=== PATIENT | female | born 1945 | race Caucasian/White ===

== ENCOUNTER 2017-02-17 05:33 | Inpatient (IN) | payer BC, MEDICARE ==
[2017-02-17] MEDS ORDERED: NS 0.9% 1000 ML* 2,000 ML IV ONE (05:53)
[2017-02-17] MEDS ORDERED: Ondansetron INJ* 2 MG/ML VIAL IV ONE ×2 (05:53→10:02)
[2017-02-17] MEDS ORDERED: Morphine INJ* 4 MG/ML 1 ML SYRINGE IV ONE (05:53)
[2017-02-17 06:06] LABS: Hematocrit 53 % (35-47); Mean Corpuscular HGB Conc 34 g/dl (31-36); Mean Corpuscular Hemoglobin 32 pg (27-31); Mean Corpuscular Volume 94 fL (80-97); Mean Platelet Volume 9 um3 (7.4-10.4); Red Cell Distribution Width 13 % (10.5-15)
[2017-02-17 06:15] LABS: Albumin 4.3 g/dL (3.2-5.2); BUN/Creatinine Ratio 9.8 (8-20); C Reactive Protein 5.74 mg/L (< 5.00); Calcium 10.4 mg/dL (8.6-10.3); EGFR African American 68.7 (>60); EGFR Non-African American 53.4 (>60); Globulin 3.5 g/dL (2-4); Potassium 3.9 mmol/L (3.5-5.0); Total Bilirubin 1.1 mg/dL (0.2-1.0); Total Protein 7.8 g/dL (6.4-8.9)
--- NOTE | 2017-02-17 06:39 | ED ---
Abdulaziz Vivar Alok, scribed for Sumit Styles MD on 02/17/17 at 0611 . Abdominal Pain/Female - HPI Summary HPI Summary: 71F presents to the ED with abd pain off and on since yesterday at noon. Pt notes vomiting at 0200 this morning and notes a bile taste in her mouth. Pt denies fever, chills, cough, diarrhea, constipation or changes in urine color. PSHx includes cholecystectomy and appendectomy. Pt is an occasional ETOH user. - History of Current Complaint Chief Complaint: EDAbdPain Stated Complaint: ABD PAIN Time Seen by Provider: 02/17/17 05:53 Hx Obtained From: Patient Onset/Duration: Lasting Days, Still Present Timing: Intermittent Episode Lasting Severity Initially: Moderate Severity Currently: Moderate Pain Intensity: 3 Pain Scale Used: 0-10 Numeric Location: Discrete At: RLQ, Discrete At: LLQ Aggravating Factor(s): Nothing Alleviating Factor(s): Nothing Associated Signs and Symptoms: Positive: Nausea, Vomiting. Negative: Fever, Cough, Constipation, Urinary Symptoms, Diarrhea Allergies/Adverse Reactions: Allergies Allergy/AdvReac Type Severity Reaction Status Date / Time No Known Allergies Allergy Verified 02/17/17 05:48 PMH/Surg Hx/FS Hx/Imm Hx GI History: Denies: Hx Diverticulosis History: Denies: Hx Kidney Stones Infectious Disease History: No Infectious Disease History: Denies: Traveled Outside the [place] in Last 30 Days - Family History Known Family History: Positive: Other - Yes- Diverticulitis - Social History Occupation: Retired Alcohol Use: Occasionally Substance Use Type: Reports: None Smoking Status (MU): Never Smoked Tobacco Review of Systems Negative: Fever, Chills Negative: Cough Positive: Abdominal Pain, Vomiting, Nausea. Negative: Diarrhea, Other - constipation Positive: no symptoms reported - urinary All Other Systems Reviewed And Are Negative: Yes Physical Exam - Summary Physical Exam Summary: The patient is well-nourished in no acute distress and in no acute pain. The skin is warm and dry and skin color reflects adequate perfusion. HEENT: The head is normocephalic and atraumatic. The pupils are equal and reactive. The conjunctivae are clear and without drainage. Nares are patent and without drainage. Mouth reveals dry mucous membranes and the throat is without erythema and exudate. The external ears are intact. The ear canals are patent and without drainage. The tympanic membranes are intact. Neck is supple with full range of motion and non-tender. There are no carotid bruits. There is no neck vein distension. Respiratory: Chest is non-tender. Lungs are clear to auscultation and breath sounds are symmetrical and equal. Cardiovascular: Heart is regular rate and rhythm. There is no murmur or rub auscultated. There is no peripheral edema and pulses are symmetrical and equal. Abdomen: The abdomen is soft with left and right mid-quadrant tenderness and no pain with percussion. No epigastric or right upper quadrant tenderness. There are normal bowel sounds heard in all four quadrants and there is no organomegaly palpated. Musculoskeletal: There is no back pain noted. Extremities are non-tender with full range of motion. There is a capillary refill of 2 seconds. There is no peripheral edema or calf tenderness elicited. Neurological: Patient is alert and oriented to person, place and time. The patient has symmetrical motor strength in all four extremities. Cranial nerves are grossly intact. Deep tendon reflexes are symmetrical and equal in all four extremities. Psychiatric: The patient has an appropriate affect and does not exhibit any anxiety or depression. Triage Information Reviewed: Yes Vital Signs On Initial Exam: Initial Vitals Temp Pulse Resp BP Pulse Ox 98.3 F 67 20 133/74 97 02/17/17 05:35 02/17/17 05:35 02/17/17 05:35 02/17/17 05:35 02/17/17 05:35 Vital Signs Reviewed: Yes - Seale Coma Scale Coma Scale Total: 15 Diagnostics - Vital Signs Vital Signs Temp Pulse Resp BP Pulse Ox 02/17/17 05:46 66 95 02/17/17 05:45 66 96 02/17/17 05:44 130/78 02/17/17 05:35 98.3 F 67 20 133/74 97 - Laboratory Lab Results: Lab Results 02/17/17 02/17/17 02/17/17 Range/Units 05:40 05:40 05:40 WBC 13.0 H (3.5-10.8) 10^3/ul RBC 5.70 H (4.0-5.4) 10^6/ul Hgb 18.0 H (12.0-16.0) g/dl Hct 53 H (35-47) % MCV 94 (80-97) fL MCH 32 H (27-31) pg MCHC 34 (31-36) g/dl RDW 13 (10.5-15) % Plt Count 215 (150-450) 10^3/ul MPV 9 (7.4-10.4) um3 Neut % (Auto) 91.7 H (38-83) % Lymph % (Auto) 4.9 L (25-47) % [place] % (Auto) 2.9 (1-9) % Eos % (Auto) 0 (0-6) % Baso % (Auto) 0.5 (0-2) % Absolute Neuts (auto) 11.9 H (1.5-7.7) 10^3/ul Absolute Lymphs (auto) 0.6 L (1.0-4.8) 10^3/ul Absolute Monos (auto) 0.4 (0-0.8) 10^3/ul Absolute Eos (auto) 0 (0-0.6) 10^3/ul Absolute Basos (auto) 0.1 (0-0.2) 10^3/ul Absolute Nucleated RBC 0.01 10^3/ul Nucleated RBC % 0.1 Sodium 134 (133-145) mmol/L Potassium 3.9 (3.5-5.0) mmol/L Chloride 98 L (101-111) mmol/L Carbon Dioxide 23 (22-32) mmol/L Anion Gap 13 H (2-11) mmol/L BUN 10 (6-24) mg/dL Creatinine 1.02 H (0.51-0.95) mg/dL Est GFR ( Amer) 68.7 (>60) Est GFR (Non-Af Amer) 53.4 (>60) BUN/Creatinine Ratio 9.8 (8-20) Glucose 184 H (70-100) mg/dL Lactic Acid 3.2 H* (0.5-2.0) mmol/L Calcium 10.4 H (8.6-10.3) mg/dL Total Bilirubin 1.10 H (0.2-1.0) mg/dL AST 21 (13-39) U/L ALT 14 (7-52) U/L Alkaline Phosphatase 95 (34-104) U/L Troponin I 0.00 (<0.04) ng/mL C-Reactive Protein 5.74 H (< 5.00) mg/L Total Protein 7.8 (6.4-8.9) g/dL Albumin 4.3 (3.2-5.2) g/dL Globulin 3.5 (2-4) g/dL Albumin/Globulin Ratio 1.2 (1-3) Amylase 52 (29-103) U/L Lipase 12 (11.0-82.0) U/L Result Diagrams: 02/17/17 05:40 02/17/17 05:40 Lab Statement: Any lab studies that have been ordered have been reviewed, and results considered in the medical decision making process. - CT abd/pel CT CT Interpretation: Positive (See Comments) - Results pending CT Interpretation Completed By: Radiologist - EKG 0559 Cardiac Rate: NL - 0559 EKG Rhythm: Sinus Rhythm EKG Interpretation: Normal [place]. No ST elevations. Abdominal Pain Fem Course/Dx - Course Course Of Treatment: 71 y/o female presents with right and left mid-quadrant abd tenderness with no tenderness to percussion. EKG and CT ordered. Will sign out patient at shift change for further abdominal work-up. - Diagnoses Differential Diagnosis: Positive: Bowel Obstruction, Diverticulitis, Pancreatitis Provider Diagnoses: Abdominal pain Discharge - Discharge Plan Condition: Stable Disposition: OTHER Discharge Disposition Comment: Patient to be signed out at shift change to Dr. Segovia Referrals: Lavern Patel, [employer] [Primary Care Provider] - The documentation as recorded by the Abdulaziz post Alok accurately reflects the service I personally performed and the decisions made by , Sumit Styles MD.
[2017-02-17] MEDS ORDERED: Iodixanol* (CONTRAST) 320 MG/ML 100 ML SDV IV ONE (07:21)
[2017-02-17 08:28] LABS: Urine Bacteria Absent (Absent); Urine Bilirubin Negative (Negative); Urine Glucose Negative (Negative); Urine Nitrite Negative (Negative)
--- NOTE | 2017-02-17 08:45 | RAD ---
CLINICAL HISTORY: Diffuse abdominal pain COMPARISON: None TECHNIQUE: Contrast enhanced CT examination of the abdomen and pelvis from the lung bases through the initial tuberosities. The patient received 96 mL Visipaque 320 intravenously prior to imaging.The patient received oral contrast as well prior to imaging. FINDINGS: VISUALIZED LUNG BASES: The visualized lung bases are grossly clear. There is no pleural effusion. ABDOMEN AND PELVIS: The liver, spleen, pancreas and adrenal glands are grossly normal in appearance. The gallbladder appears to be surgically absent The kidneys are normal in appearance without focal mass, calcification or signs of hydronephrosis. Neural contrast has progressed only as far as the proximal small bowel. There is mild dilatation of the mostly fluid-filled small bowel measuring up to 3 cm in diameter (axial image 43). At the left of midline mid abdomen there appears to be a transition point (axial image 64 and coronal image 25), beyond which the small bowel and colon are comparatively decompressed. There are diverticula seen throughout the length of the colon but there is no focal inflammatory change of the colon characteristic of diverticulitis. There is no gross retroperitoneal or mesenteric lymphadenopathy. There is a right of midline abdominal wall hernia allowing a small amount of peritoneal fat and fluid to herniate into the subcutaneous fat (image 68). The bowel does not appear to be involved with this hernia. The pelvic viscera is normal in appearance. The moderately calcified abdominal aorta and iliac arteries are normal in course and diameter. Degenerative changes include multilevel loss of intervertebral disc height involving the lower thoracic and lumbar spine.There are no sinister bone lesions. IMPRESSION: 1. CT findings are most consistent with partial small bowel obstruction with a transition point potentially identified at the anterior left of midline mid-level abdomen as described above. 2. Additional chronic, degenerative and iatrogenic findings described in the body of the report.
[2017-02-17] MEDS: NS 0.9% 1000 ML* 1,000 ML IV SCH ×2 (10:45→20:10)
[2017-02-17] MEDS: Morphine INJ* 2 MG/ML 1 ML SYRINGE IV PRN ×2 (11:48→18:04)
[2017-02-17] MEDS: Ondansetron INJ* 2 MG/ML VIAL IV PRN ×2 (11:48→17:53)
--- NOTE | 2017-02-17 13:42 | HP ---
CC: Dr. Maloney, [facility]; Dr. Jorgensen, [place] * ADMISSION HISTORY AND PHYSICAL: DATE OF ADMISSION: 02/17/17 LOCATION: Emergency room. PROVIDER: Dr. Marcial Maloney. * (DICTATED BY GURU DICKSON NP) CHIEF COMPLAINT: Worsening abdominal pain. HISTORY OF PRESENT ILLNESS: The patient is a pleasant 71-year-old female, who describes herself as generally healthy; yesterday around noon, she started to feel "poorly" and had a "upset stomach"; around 4 p.m. yesterday, she had the onset of abdominal cramping. At 2 a.m., she awoke with repeated episodes of vomiting and at 4 a.m., she decided to call the ambulance because she had worsening abdominal cramping. She states that she had a formed bowel movement around 3 o'clock this morning and has not had any episodes of diarrhea. She takes a fiber supplement daily and denies any history of constipation. She denies any dysuria. Yesterday, she ate some fruit and then a sandwich with hot sausage and beans and she also ate some Twizzlers. She has had no previous episodes similar to this. She had had multiple abdominal surgical procedures. In the emergency room today, CAT scan of the abdomen and pelvis revealed findings most consistent with partial small-bowel obstruction with a transition point identified at the anterior left of midline and Dr. Maloney reviewed it and indicated that the transition point appeared to be in the ileum. There was no focal inflammatory change of the colon characteristic of diverticulitis. Laboratory data revealed white blood cell count of 13, hemoglobin 18, hematocrit 53, platelet count 215,000. Chloride was low at 98, creatinine was slightly elevated at 1.02, lactic acid elevated at 3.2, and C-reactive protein elevated at 5.74. At this time, the patient is complaining of nausea and right lower quadrant discomfort. PAST MEDICAL HISTORY: She describes herself as generally healthy other than hypothyroidism and she also takes medication for elevated cholesterol. She has a primary care provider in [place], Dr. Jorgensen. PAST SURGICAL HISTORY: Open cholecystectomy with possible appendectomy at the same surgical setting over 30 years ago; she has had multiple ventral hernia repairs and had mesh inserted approximately 25 years ago at [facility]; she has also had tubal ligation and D and C. CURRENT MEDICATIONS: 1. Levothyroxine, unspecified dose daily. 2. Simvastatin, unspecified dose daily. 3. Fiber tablet supplement daily. ALLERGIES: No known drug allergies. FAMILY HISTORY: Father had a history of diverticulitis. Both parents and all of her siblings were diabetic; no known anesthesia complications, bleeding tendencies, or clotting disorders. SOCIAL HISTORY: She is ; she moved to [place] approximately 1 month ago and currently is living with her daughter, who accompanies her today. She quit smoking over 30 years ago and drinks alcohol socially. She denies the use of other substances. REVIEW OF SYSTEMS: Constitutional: Has been feeling well up until yesterday. No recent acute illnesses. Cardiovascular: No history of hypertension or myocardial infarction. She does take simvastatin most likely with a history of elevated cholesterol. Respiratory: No chronic cough. No history of pneumonia or asthma. GI: As in history of present illness. No other complaints. Genitourinary: No dysuria, no history of kidney stones. Endocrine: She is treated for hypothyroidism. No history of diabetes. Musculoskeletal: No chronic back pain or joint pain. She remains active. Hematologic: No bleeding tendencies. She did receive a transfusion with her first delivery; no history of deep vein thrombosis or pulmonary embolism. Neurologic: No history of seizures or any neurologic complaints. No previous anesthesia complications. PHYSICAL EXAMINATION GENERAL SURVEY: The patient is a 71-year-old female, well developed, well nourished, in no acute distress. VITAL SIGNS: Height 63 inches, weight 170 pounds, blood pressure 120/80, pulse 60 and regular, respiratory rate 20, temperature 98.3 tympanic, O2 saturation on room air 96%. HEENT: Benign. NECK: Supple. No cervical lymphadenopathy. LUNGS: Breath sounds bilaterally clear and equal. BACK: No CVA tenderness. HEART: Regular rate and rhythm. No murmurs or rubs appreciated. ABDOMEN: Hypoactive bowel sounds, obese, soft, and nondistended. In the upper abdomen, there is a wide midline surgical scar; on palpation, she complains of pain in the right lower quadrant and with deep palpation rates it a 10; just below the midline scar, there is an area that may represent a small ventral hernia that is nontender. No other obvious masses or organomegaly. No rebound tenderness. EXTREMITIES: Warm without edema or skin ulceration. NEUROLOGIC: Alert and oriented x3. SKIN: Warm, dry, and intact. IMPRESSION: Partial small-bowel obstruction in a patient who has had multiple abdominal surgical procedures; the CAT scan of the abdomen and pelvis have been reviewed by Dr. Maloney. PLAN: Admit to Dr. Maloney's service for IV fluid resuscitation, the patient will be kept n.p.o., a nasogastric tube will be inserted if the patient has persistent vomiting; repeat CBC, P3, and lactic acid, and an abdominal x-ray with 2 views will be obtained tomorrow morning and further planning will be per Dr. Maloney. TIME SPENT: Seventy-five minutes with greater than 50% in history taking and discussion with the patient and her family. GURU DICKSON NP [id number]/CPS #: [id number] ELENA
[2017-02-18] MEDS: Morphine INJ* 2 MG/ML 1 ML SYRINGE IV PRN ×2 (01:31→16:20)
[2017-02-18] MEDS: Ondansetron INJ* 2 MG/ML VIAL IV PRN ×2 (01:34→13:26)
[2017-02-18] MEDS: NS 0.9% 1000 ML* 1,000 ML IV SCH ×2 (02:00→18:50)
[2017-02-18 05:35] LABS: Hematocrit 44 % (35-47); Hemoglobin 14.7 g/dl (12.0-16.0); Mean Corpuscular HGB Conc 33 g/dl (31-36); Mean Corpuscular Hemoglobin 31 pg (27-31); Mean Corpuscular Volume 93 fL (80-97); Mean Platelet Volume 8 um3 (7.4-10.4); Red Blood Count 4.75 10^6/ul (4.0-5.4); Red Cell Distribution Width 13 % (10.5-15); White Blood Count 11.4 10^3/ul (3.5-10.8)
[2017-02-18 05:46] LABS: BUN/Creatinine Ratio 19.7 (8-20); Calcium 8.1 mg/dL (8.6-10.3); EGFR African American 104.4 (>60); EGFR Non-African American 81.2 (>60); Potassium 3.8 mmol/L (3.5-5.0)
--- NOTE | 2017-02-18 08:21 | RAD ---
HISTORY: Follow-up partial small bowel obstruction COMPARISONS: CT dated February 17, 2017 VIEWS: Frontal supine and upright views of the abdomen. FINDINGS: BOWEL: There is distention and mild dilatation of the small bowel. Oral contrast is noted within the colon. There are multiple diverticula of the colon. CALCULI: There are no abnormal calculi. BONES AND SOFT TISSUES: Degenerative changes are noted. OTHER FINDINGS: The lung bases are clear. There is no subphrenic gas. Contrast is noted within the bladder. IMPRESSION: MILDLY DILATED LOOPS OF SMALL BOWEL WITH CONTRAST NOTED IN THE COLON CONSISTENT WITH THE HISTORY OF PARTIAL SMALL BOWEL OBSTRUCTION.
[2017-02-18] MEDS ORDERED: Pantoprazole IV* 40 MG IV SCH (14:00)
[2017-02-18] MEDS: Pantoprazole IV* 40 MG IV SCH (15:18)
[2017-02-19] MEDS: NS 0.9% 1000 ML* 1,000 ML IV SCH ×2 (04:35→15:11)
--- NOTE | 2017-02-19 08:50 | RAD ---
INDICATION: Small bowel obstruction COMPARISON: Similar radiograph dated February 18, 2017 TECHNIQUE: Supine and upright views of the abdomen were obtained. FINDINGS: Again seen are air-filled loops of small bowel measuring up to 3.8 cm in diameter. Oral contrast is seen in the otherwise normal-appearing colon. There is no free intraperitoneal gas. IMPRESSION: Persistently dilated air-filled small bowel is seen but with a smaller volume of loops compared to the February 18, 2017 radiograph.
[2017-02-19] MEDS ORDERED: Sodium Phosphate ADULT ENEMA* 118 ml bottle PR ONE (09:30)
[2017-02-19] MEDS ORDERED: Magnesium CITRATE* 300 ML BTL PO ONE (09:30)
[2017-02-19] MEDS: Pantoprazole IV* 40 MG IV SCH (14:16)
[2017-02-20] MEDS: NS 0.9% 1000 ML* 1,000 ML IV SCH ×2 (02:07→14:33)
[2017-02-20 08:05] LABS: Hematocrit 41 % (35-47); Hemoglobin 13.6 g/dl (12.0-16.0); Mean Corpuscular HGB Conc 33 g/dl (31-36); Mean Corpuscular Hemoglobin 31 pg (27-31); Mean Corpuscular Volume 94 fL (80-97); Mean Platelet Volume 9 um3 (7.4-10.4); Red Blood Count 4.38 10^6/ul (4.0-5.4); Red Cell Distribution Width 13 % (10.5-15)
[2017-02-20] MEDS ORDERED: Magnesium CITRATE* 300 ML BTL PO ONE (08:07)
[2017-02-20 08:18] LABS: BUN/Creatinine Ratio 14.7 (8-20); Calcium 8.4 mg/dL (8.6-10.3); EGFR Non-African American 76.2 (>60); Potassium 3.5 mmol/L (3.5-5.0)
--- NOTE | 2017-02-20 08:45 | RAD ---
INDICATION: Follow-up small bowel obstruction COMPARISON: Most recent comparison radiograph is dated February 19, 2017 TECHNIQUE: Supine and upright views of the abdomen were obtained. FINDINGS: Again seen are partially air-filled dilated loops of small bowel. There are air-fluid levels on the upright view. The loops of small bowel exhibiting a maximum diameter of 3.9 cm overlying the lower left abdomen. Oral contrast is seen in the mostly decompressed colon. There is no free air beneath the diaphragm. IMPRESSION: Persistent appearance of small bowel obstruction within an overall similar appearance to the previous day radiograph.
[2017-02-20] MEDS ORDERED: Al Hydrox/Mg Hydrox/Simet LIQ* 30 ML UDC ONE (12:21)
[2017-02-20] MEDS ORDERED: Al Hydrox/Mg Hydrox/Simet LIQ* 30 ML UDC PO PRN (12:25)
[2017-02-20] MEDS: Pantoprazole IV* 40 MG IV SCH (14:33)
[2017-02-21] MEDS: NS 0.9% 1000 ML* 1,000 ML IV SCH (06:20)
--- NOTE | 2017-02-21 08:10 | RAD ---
Indication: Small bowel obstruction Comparison is made with previous exam dated February 20, 2017. Flat and upright views of the abdomen demonstrates moderately distended loops of small bowel with air air-fluid levels. There is air in the right colon. IMPRESSION: Moderately dilated loops of small bowel in the left mid abdomen with air in the right colon suggestive of improving small bowel obstruction.
[2017-02-21] MEDS: Pantoprazole IV* 40 MG IV SCH (14:18)
[2017-02-22 09:30] VITALS: BP 111/64
--- NOTE | 2017-02-23 02:38 | DS ---
CC: Marcial Maloney MD; Lavern Patel NP * DISCHARGE SUMMARY: DATE OF ADMISSION: 02/18/17 DATE OF DISCHARGE: 02/22/17 PRINCIPAL ADMITTING DIAGNOSIS: Small bowel obstruction. HOSPITAL COURSE: The patient is a 71-year-old female who came to the hospital with signs and symptoms of small bowel obstruction. It appeared to be a partial obstruction. She was maintained on intravenous fluids, bowel rest, and had a gradual improvement in her situation with gradual passage of the CAT scan contrast all the way through the colon. She gradually increased her bowel function and as of 02/22/17, was tolerating a full liquid diet without pain or bloating or nausea, had no pain or tenderness, was passing stool and flatus, so she was discharged home on 02/22/17 and will follow up in the office as needed. She was discharged with instructions. [id number]/CPS #: [id number] MTDD
== END 2017-02-22 10:25 | disposition home or self-care (01) | DRG 390 ==
LOC: ED 05:33 → SSU 10:36 → OBSVTOIN 02-18 14:36
PROVIDERS: ADMIT Surgery; ATTEND Surgery
DX: K56.69 Other intestinal obstruction (principal); E03.9 Hypothyroidism, unspecified; E78.00 Pure hypercholesterolemia, unspecified; Z79.899 Other long term (current) drug therapy; Z83.3 Family history of diabetes mellitus; Z87.891 Personal history of nicotine dependence
CPT/HCPCS: 36415; 74020; 74177; 80048; 80053; 81003; 81015; 82150; 83605; 83690; 84484; 85025; 85027; 86140; 93005; A9270-GY; G0378; J2270; J2405; Q9967

== ENCOUNTER 2023-06-13 05:54 | Inpatient (IN) ==
[~2023-06-13 05:54] MED LIST: Buffered Lidocaine 1% SYRIN 1 ml INTRADERM ONE; HYDROmorphone 1 MG/1 ML SYRINGE IV PRN; Lactated Ringers 1000 ml BAG 1,000 ML IV SCH; Naloxone 0.4 mg VIAL 0.4 mg/ml 1 ml VIAL IV PRN; Ondansetron 4 mg VIAL 2 MG/ML 2 ml VIAL IV PRN; fentaNYL 100 mcg/2 ml 50 MCG/ML VIAL IV PRN
[2023-06-13] MEDS ORDERED: Lidocaine 1% w EPI 1:100,000 MDV 20 ML VIAL ONE (07:02)
[2023-06-13] MEDS ORDERED: Bupivacaine 0.25% SDV 30 ML ONE (07:03)
[2023-06-13] MEDS ORDERED: Heparin 5000 UNITS/ML 1 mL VIAL ONE (07:12)
[2023-06-13] MEDS ORDERED: fentaNYL 250 mcg/5 ml 50 MCG/ML 5 ml VIAL (250 MCG) ONE (07:16)
[2023-06-13] MEDS ORDERED: Midazolam 2 mg/2 ml VIAL 1 mg/ml 2 ml VIAL (2 mg) ONE (07:16)
[2023-06-13] MEDS ORDERED: Lidocaine 2% PF 5 ML VIAL ONE (07:18)
[2023-06-13] MEDS ORDERED: Propofol 10 MG/ML 20 ML BTL ONE (07:18)
[2023-06-13] MEDS ORDERED: Sodium Chloride 0.9% 10 ML ONE ×2 (07:23→09:56)
[2023-06-13 07:26] LABS: Rapid COVID-19 Molecular Undetected (Undetected)
[2023-06-13] MEDS ORDERED: Glycopyrrolate IV 0.2 MG/ML 1 ML VIAL ONE (07:54)
[2023-06-13] MEDS ORDERED: Ertapenem 1 GM in NS 0.9% 50 ML IVPB ONE (08:00)
[2023-06-13] MEDS ORDERED: Ondansetron 4 mg VIAL 2 MG/ML 2 ml VIAL ONE (08:13)
[2023-06-13] MEDS ORDERED: Dexamethasone IV 4 MG/ML VIAL 1 ml VIAL ONE (08:13)
[2023-06-13] MEDS ORDERED: Phenylephrine 40 mcg/mL 10mL (400mcg) SYRINGE ONE (08:17)
[2023-06-13] MEDS ORDERED: Norepinephrine IV 1 MG/ML 4 ML VIAL ONE (08:40)
[2023-06-13] MEDS ORDERED: HYDROmorphone 0.5 MG/0.5 ML SYRINGE ONE ×2 (09:26→10:36)
[2023-06-13] MEDS ORDERED: Ondansetron 4 mg VIAL 2 MG/ML 2 ml VIAL IV PRN (12:12)
[2023-06-13] MEDS ORDERED: HYDROmorphone 0.5 MG/0.5 ML SYRINGE IV SLOW PU PRN ×2 (12:21→14:13)
[2023-06-13] MEDS: Acetaminophen IV 1 GM/100ML 1,000 MG/100 ML BAG IV SCH (15:51)
[2023-06-14] MEDS: Acetaminophen IV 1 GM/100ML 1,000 MG/100 ML BAG IV SCH ×4 (00:28→23:15)
[2023-06-14] MEDS ORDERED: Enoxaparin 40 MG/0.4 ML SYR SUBCUT SCH (15:00)
[2023-06-15] MEDS: Acetaminophen IV 1 GM/100ML 1,000 MG/100 ML BAG IV SCH (08:40)
[2023-06-15 09:45] VITALS: BP 124/73
== END 2023-06-15 12:35 | disposition home or self-care (01) | DRG 331 ==
LOC: AA 05:54 → SSU 14:09
PROVIDERS: ADMIT Surgery; ATTEND Surgery